=== PATIENT | male | born 1970 | race Caucasian/White ===

== ENCOUNTER 2017-05-14 17:19 | Outpatient (CLI) | payer OTHER ==
--- NOTE | 2017-05-15 11:09 | XRAY Report ---
THREE-VIEW RIGHT ANKLE: 05/14/2017 CLINICAL INDICATION: Pain. COMPARISON: 04/15/2012 FINDINGS: Frontal, lateral and oblique views of the right ankle demonstrate mild osteoarthritis. There is no evidence of acute fracture or dislocation. No effusion or soft tissue swelling is present. IMPRESSION: MILD OSTEOARTHRITIS. JAVED/ TD: 05/15/2017 12[facility]
--- NOTE | 2017-05-15 11:11 | XRAY Report ---
DATE OF SERVICE: 05/14/2017 Physician: Kg Chawla MD TWO-VIEW LEFT CALCANEUS: 05/14/2017 CLINICAL INDICATION: Pain. FINDINGS: AP, lateral views of the left calcaneus demonstrate no evidence of fracture. A small plantar calcaneal spur is present. No radiopaque foreign body is seen in the soft tissues. IMPRESSION: SMALL LEFT PLANTAR CALCANEAL SPUR. TD: 05/15/2017 12:09 [facility]
== END 2017-05-14 17:20 | disposition home or self-care (01) ==
LOC: DI 17:19
PROVIDERS: ATTEND Internal Medicine
DX: M19.071 Primary osteoarthritis, right ankle and foot (principal); M25.571 Pain in right ankle and joints of right foot; M77.32 Calcaneal spur, left foot; M79.672 Pain in left foot

== ENCOUNTER 2021-10-15 10:57 | Outpatient (CLI) | payer SELFPAY ==
--- NOTE | 2021-10-15 12:21 | XRAY Report ---
PROCEDURE: Lumbar Spine 2 View INDICATIONS: LOW BACK PAIN,ACUTE TECHNIQUE: 2 views of the lumbar spine were acquired. COMPARISON: None. FINDINGS: Bones: 5 exn-qsa-[id number] vertebrae are present. There is normal bony alignment. No vertebral body compression fractures. No suspicious bony lesions. Moderate to severe L5-S1 degenerative disc diseas e. Mild L3-L4 and L4-L5 degenerative disc disease. Soft tissues: Overlying bowel gas pattern is normal. No suspicious soft tissue calcifications. IMPRESSION: 1. Multilevel degenerative disc disease. 2. No fracture. No acute osseous lesion. If there is continued clinical concern for pathology, then M RI should be considered for further evaluation. Reviewed by: Kayleigh Cano MD, PhD on 10/15/2021 12:19 PM PDT Approved by: Kayleigh Cano MD, PhD on 10/15/2021 12:19 PM PDT Station ID: [id number]
== END 2021-10-15 10:58 | disposition home or self-care (01) ==
LOC: DI 10:57
PROVIDERS: ATTEND Family Medicine
DX: M51.36 Other intervertebral disc degeneration, lumbar region (principal); M51.37 Other intervertebral disc degeneration, lumbosacral region

== ENCOUNTER 2022-06-04 12:28 | Emergency (ER) | payer SELFPAY ==
[2022-06-04 13:13] LABS: BASOPHILS # (AUTO) 0.1 10^3/uL (0.0-0.1); BASOPHILS % (AUTO) 1.2 %; EOSINOPHILS # (AUTO) 0.1 10^3/uL (0.0-0.7); EOSINOPHILS % (AUTO) 1.4 %; HCT - HEMATOCRIT 43.7 % (42.0-52.0); HGB - HEMOGLOBIN 14.5 g/dL (14.0-18.0); LYMPHOCYTES % (AUTO) 28.9 %; MEAN CORPUSCULAR HGB CONC 33.2 g/dL (32.0-36.0); MEAN CORPUSCULAR VOLUME 96.5 fL (80.0-94.0); MEAN PLATELET VOLUME 10.1 fL (7.4-11.4); MONOCYTES # (AUTO) 0.5 10^3/uL (0.0-1.0); MONOCYTES % (AUTO) 7.2 %; NEUTROPHILS # (AUTO) 4.2 10^3/uL (1.5-6.6); PLT - PLATELET COUNT 258 10^3/uL (130-450); RED BLOOD COUNT 4.53 10^6/uL (4.70-6.10); RED CELL DISTRIBUTION WIDTH 12.9 % (12.0-15.0)
[2022-06-04 13:32] LABS: ALBUMIN 4.4 g/dL (3.2-5.5); ALBUMIN/GLOBULIN RATIO 1.3 (1.0-2.2); BILIRUBIN,TOTAL 0.7 mg/dL (0.2-1.0); CALCIUM 8.6 mg/dL (8.5-10.3); CREATININE 0.9 mg/dL (0.6-1.2); POTASSIUM 3.3 mmol/L (3.5-5.0); TOTAL PROTEIN 7.9 g/dL (6.7-8.2)
--- NOTE | 2022-06-04 13:50 | XRAY Report ---
PROCEDURE: Chest 1 View X-Ray INDICATIONS: Chest pain TECHNIQUE: One view of the chest was acquired. COMPARISON: None. FINDINGS: Surgical changes and devices: None. Lungs and pleura: Low lung volumes without consolidation or pleural effusion. Mediastinum: Mediastinal contours appear normal. Heart size is normal. Bones and chest wall: No suspicious bony lesions. Overlying soft tissues appear unremarkable. IMPRESSION: No acute radiographic abnormality. Reviewed by: Edward Barbosa MD on 06/04/2022 1:48 PM PST Approved by: Edward Barbosa MD on 06/04/2022 1:48 PM [facility] Station ID: [id number]
[2022-06-04] MEDS ORDERED: iohexoL-300 100 ML VIAL ONE (15:33)
[2022-06-04] MEDS ORDERED: iohexoL-300 100 ML VIAL IVP ONE (16:12)
--- NOTE | 2022-06-04 16:30 | CT Report ---
PROCEDURE: ANGIO NECK W INDICATIONS: Left-sided face, arm, and leg numbness. CONTRAST: 80mL Omni 300 TECHNIQUE: After the administration of intravenous contrast, 1.5 mm axial sections acquired from the aortic arch to the [place] of [place]. Coronal 3-D maximum intensity projection (MIP) and/or volume rendering ref ormats were then performed. For radiation dose reduction, the following was used: automated exposur e control, adjustment of mA and/or kV according to patient size. COMPARISON: None. FINDINGS: Standard three-vessel aortic arch anatomy. Origins of the arch branch vessels are widely patent. Bila teral common carotid arteries and carotid bifurcations are widely patent. The extracranial portions o f the internal carotid arteries are normal in caliber. Bilateral vertebral arteries widely patent. Mi ldly hypoplastic left vertebral artery with dominant right vertebral artery. IMPRESSION: No immediately significant stenosis of the carotid or vertebral artery circulation in the neck. Reviewed by: Fam Adamson MD on 06/04/2022 4:28 PM PST Approved by: Fam Adamson MD on 06/04/2022 4:28 PM PST Station ID: [id number]
--- NOTE | 2022-06-04 16:33 | CT Report ---
PROCEDURE: ANGIO HEAD W/WO INDICATIONS: L sided face, arm, leg numbness CONTRAST: 80mL Omni 300 TECHNIQUE: Precontrast 4.5 mm thick angled axial sections acquired from the foramen magnum to the vertex. Afte r the administration of intravenous contrast, 1 mm thick sections acquired through the [place] of [place] is. Postcontrast 4.5 mm thick sections then re-acquired from the foramen magnum to the vertex. 3-di mensional ppmitsr-nbsbzmetg-hoyyqvkwcp (MIP) and/or volume rendering reformats were acquired of the c entral intracranial vasculature. For radiation dose reduction, the following was used: automated ex posure control, adjustment of mA and/or kV according to patient size. COMPARISON: None FINDINGS: Noncontrast images of the brain demonstrate no acute intracranial hemorrhage, abnormal extra-axial fl uid collection, mass effect, or midline shift. There normal ventricular caliber and position. Basilar cisterns patent. Normal brain parenchymal attenuation. No gross orbital abnormality. Paranasal sinus es and mastoid air cells clear. Angiographic images demonstrate widely patent intracranial internal carotid arteries. Anterior and mi ddle cerebral artery branches appear widely patent. V4 segments and basilar artery are normal in [place]. Posterior cerebral arteries appear normal. IMPRESSION: No acute intracranial in the MLO No intracranial arterial flow-limiting stenosis or branch occlusion. Reviewed by: Fam Adamson MD on 06/04/2022 4:31 PM PST Approved by: Fam Adamson MD on 06/04/2022 4:31 PM PST Station ID: [id number]
[2022-06-04] MEDS ORDERED: MAG HYDROX/AL HYDROX/SIMETH 30 ML UDC PO STA (18:44)
[2022-06-04] MEDS ORDERED: SUCRALFATE 1 GM/10 ML UDC PO STA (18:44)
--- NOTE | 2022-06-04 18:58 | ED Physician Documentation ---
History of Present Illness - Stated complaint Stated Complaint: L SIDE FACE/BODY NUMBNESS, CHEST PX - Chief complaint Chief Complaint: General - History obtained from History obtained from: Patient, Family - History of Present Illness Timing: Last night Pain level max: 0 Pain level now: 0 - Additonal information Additional information: Patient is a 52-year-old male, presents to the emergency department with several complaints. He states that yesterday he noticed a slight numbness to his left calf. This has come and gone today. He also noticed that he had numbness on the volar aspect of the left forearm. This went down to the wrist. No numbness in the hand. No numbness proximal to the elbow. No difficulty using his hands. He states the left cheek was also numb. No vision changes. No taste changes. No facial droop. No difficulty speaking. He states he had slight chest pressure as well. This was nonradiating. Did not seem to change with walking, deep breath. No cardiac history. He states that he has a history of binge drinking alcohol. He states he drinks a 12 pack of beer in a sitting and does this approximately 3-4 times per week. He states that he was recently started on metoprolol to help with the alcohol use and to help him quit drinking. No headache. No trauma. Review of Systems Constitutional: denies: Fever, Chills Skin: denies: Rash Musculoskeletal: denies: Neck pain, Back pain Neurologic: denies: Headache PD PAST MEDICAL HISTORY - Past Medical History Past Medical History: No - Past Surgical History Past Surgical History: No - Allergies Allergies/Adverse Reactions: Allergies Allergy/AdvReac Type Severity Reaction Status Date / Time No Known Drug Allergies Allergy Verified 06/04/22 12:57 - Living Situation Living Situation: reports: With family Living Arrangement: reports: At home - Social History Does the pt smoke?: No Does the pt drink ETOH?: Yes ETOH Use: Beer Does the pt have substance abuse?: No - Family History Family history: reports: Non contributory PD ED PE NORMAL - Vitals Vital signs reviewed: Yes - General General: Alert and oriented X 3, No acute distress, Well developed/nourished - HEENT HEENT: Atraumatic, PERRL, EOMI, Ears normal, Moist mucous membranes, Pharynx benign - Neck Neck: Supple, no meningeal sign, No JVD, No bruit - Cardiac Cardiac: RRR, Strong equal pulses - Respiratory Respiratory: No respiratory distress, Clear bilaterally - Abdomen Abdomen: Soft, Non tender, Non distended - Derm Derm: Warm and dry, No rash - Extremities Extremities: No edema, No calf tenderness / cord - Neuro Neuro: Alert and oriented X 3, qa consultant 2-12 intact, No motor deficit, No sensory deficit, Normal speech Eye Opening: Spontaneous Motor: Obeys Commands Verbal: Oriented GCS Score: 15 - Psych Psych: Normal mood, Normal affect Results - Vitals Vitals: Vital Signs - 24 hr 06/04/22 06/04/22 06/04/22 12:52 17:38 19:00 Temperature 36.4 C L Heart Rate 80 64 61 Respiratory 16 13 16 Rate Blood Pressure 168/98 H 145/103 H 139/95 H O2 Saturation 99 95 95 Oxygen O2 Source Room air - EKG (time done) 1300 Rate: Rate (enter#) (77) Rhythm: NSR [place]: Normal Intervals: Normal MD QRS: Normal Ischemia: T wave inversion (III) - Labs Labs: Laboratory Tests 06/04/22 06/04/22 06/04/22 13:08 13:08 13:08 WBC 7.0 RBC 4.53 L Hgb 14.5 Hct 43.7 MCV 96.5 H MCH 32.0 H MCHC 33.2 RDW 12.9 Plt Count 258 MPV 10.1 Neut # (Auto) 4.2 Lymph # (Auto) 2.0 Williams # (Auto) 0.5 Eos # (Auto) 0.1 Baso # (Auto) 0.1 Absolute Nucleated RBC 0.00 Nucleated RBC % 0.0 Sodium 136 Potassium 3.3 L Chloride 96 L Carbon Dioxide 28 Anion Gap 12.0 BUN 13 Creatinine 0.9 Estimated GFR (MDRD) 89 Glucose 94 Calcium 8.6 Phosphorus Magnesium Total Bilirubin 0.7 AST 28 ALT 35 Alkaline Phosphatase 57 Troponin I High Sens 2.4 Total Protein 7.9 Albumin 4.4 Globulin 3.5 Albumin/Globulin Ratio 1.3 Lipase 31 06/04/22 13:08 WBC RBC Hgb Hct MCV MCH MCHC RDW Plt Count MPV Neut # (Auto) Lymph # (Auto) Williams # (Auto) Eos # (Auto) Baso # (Auto) Absolute Nucleated RBC Nucleated RBC % Sodium Potassium Chloride Carbon Dioxide Anion Gap BUN Creatinine Estimated GFR (MDRD) Glucose Calcium Phosphorus 3.5 Magnesium 2.2 Total Bilirubin AST ALT Alkaline Phosphatase Troponin I High Sens Total Protein Albumin Globulin Albumin/Globulin Ratio Lipase - Rads (name of study) cxr Radiology: Final report received, See rad report CT angio neck Radiology: Final report received, See rad report CT angio head Radiology: Final report received, See rad report PD Medical Decision Making - ED course Complexity details: reviewed results, re-evaluated patient, considered differential (No ST elevation [place], no aortic dissection, no PE, no tension pneumothorax, no aortic aneurysm), d/w patient, d/w family ED course: 52-year-old male presents to the emergency department with numbness to the left forearm, volar aspect over about a 4 inch area, also numbness to the left calf over about a 3 inch area. He had slight numbness to the side of the face as well. Unclear etiology. No acute findings on CT angiogram of the head and neck. The aortic arch does not show any evidence of dissection. The patient did have chest pressure, high-sensitivity troponin is negative. EKG does not show any acute abnormalities. Patient does feel better after GI cocktail. Possible GERD versus gastritis? Abdomen is soft, nontender nondistended. No evidence of cholecystitis, peritonitis. Unclear etiology of the paresthesias. Recommend MRI with his doctor. MRI not available here today. Also recommend a cardiac stress test with his doctor. Patient will also start on a baby aspirin daily. He will return if he worsens. Patient and family counseled regarding signs and symptoms for which I believe and urgent re-evaluation would be necessary. Patient with good understanding of and agreement to plan and is comfortable going home at this time This document was made in part using voice recognition software. While efforts are made to proofread this document, sound alike and grammatical errors may occur. Departure - Departure Disposition: Home, Self Care Clinical Impression: Paresthesia Chest pain Qualifiers: Chest pain type: unspecified Qualified Code(s): R07.9 - Chest pain, unspecified Condition: Good Instructions: ED Chest Pain Atypical Unkn Cause, ED Paraesthesias Follow-Up: Gerri Pink PA [Primary Care Provider] - Within 3 Days Comments: Please continue your metoprolol at home. The CT angiogram of your head and neck did not show any acute abnormalities. Your chest x-ray does not show any acute abnormalities. Your laboratory testing is normal other than a mildly low potassium and sodium levels. These are not dangerous. Your heart tests are negative. It is recommended that you follow-up with your doctor for a cardiac stress test and further care. You should start on a baby aspirin daily. Please return if you worsen. Discharge Date/Time: 06/04/22 19:54 NIHSS - Time Time: 18:10 - Level of Consciousness Level of consciousness: (0) Alert, Keenly responsive LOC Questions: (0) Answers both Q's correct LOC Commands: (0) Performs both correctly - Gaze Best Gaze: (0) Normal - Visual Visual: (0) No loss - Facial Palsy Facial Palsy: (0) Normal, symmetrical movement - Motor Arms (both separate) Motor Arm (right): (0) No drift Motor Arm (left): (0) No drift - Motor Legs (both separate) Motor Leg (right): (0) No drift Motor Leg (left): (0) No drift - Limb Ataxia Limb Ataxia: (0) Absent - Sensory Sensory: (0) Normal - Best Language Best Language: (0) No aphasia - Dysarthria Dysarthria: (0) Normal - Extinction and Inattention (formally neg Extinction and inattention: (0) No abnormality - Total Score/Results Total Score/Result: 0
[2022-06-04 19:06] LABS: MAGNESIUM 2.2 mg/dL (1.7-2.8); PHOSPHORUS 3.5 mg/dL (2.5-4.6)
[2022-06-04 19:48] VITALS: BP 139/95
== END 2022-06-04 19:54 | disposition home or self-care (01) ==
LOC: ED 12:28 → SUPCPDRO 12:28 → ED 19:54
DX: R20.2 Paresthesia of skin (principal); R07.89 Other chest pain
CPT/HCPCS: 36415; 70496; 70498; 71045; 80053; 83690; 83735; 84100; 84484; 85025; 93005; 99283; 99284; A9270; Q9967

== ENCOUNTER 2023-06-01 07:40 | Outpatient (CLI) | payer BC ==
[2023-06-01 08:08] LABS: BASOPHILS % (AUTO) 0.8 %; EOSINOPHILS # (AUTO) 0.1 10^3/uL (0.0-0.7); EOSINOPHILS % (AUTO) 2.3 %; HGB - HEMOGLOBIN 13.7 g/dL (14.0-18.0); LYMPHOCYTES # (AUTO) 1.8 10^3/uL (1.5-3.5); MEAN CORPUSCULAR HGB CONC 33.4 g/dL (32.0-36.0); MEAN CORPUSCULAR VOLUME 98.8 fL (80.0-94.0); MEAN PLATELET VOLUME 9.6 fL (7.4-11.4); MONOCYTES # (AUTO) 0.5 10^3/uL (0.0-1.0); MONOCYTES % (AUTO) 9.9 %; NEUTROPHILS # (AUTO) 2.8 10^3/uL (1.5-6.6); NEUTROPHILS % (AUTO) 52.6 %; PLT - PLATELET COUNT 284 10^3/uL (130-450); RED BLOOD COUNT 4.15 10^6/uL (4.70-6.10); WHITE BLOOD COUNT 5.3 x10^3/uL (4.8-10.8)
[2023-06-01 08:26] LABS: ALBUMIN/GLOBULIN RATIO 1.4 (1.0-2.2); ALKALINE PHOSPHATASE 50 IU/L (42-121); ALT ALANINE AMINOTRANSFERASE 42 IU/L (10-60); AST ASPARTATE AMINOTRANSFERASE 25 IU/L (10-42); BILIRUBIN,TOTAL 0.4 mg/dL (0.2-1.0); BUN - BLOOD UREA NITROGEN 16 mg/dL (6-20); CALCIUM 8.4 mg/dL (8.5-10.3); CARBON DIOXIDE - CO2 29 mmol/L (21-32); CHLORIDE 103 mmol/L (101-111); CHOL/HDL RATIO 4.2 (<5.0); CHOLESTEROL 200 mg/dL; GFR - MDRD 79 (>89); GLUCOSE 104 mg/dL (74-104); HDL CHOLESTEROL 48 mg/dL; LDL CHOLESTEROL,CALCULATED 135 mg/dL; LDL/HDL RATIO 2.8 (<3.6); POTASSIUM 3.9 mmol/L (3.5-4.5); SODIUM 137 mmol/L (135-145); TOTAL PROTEIN 6.8 g/dL (6.4-8.9); TRIGLYCERIDES 86 mg/dL (48-352); VLDL CHOLESTEROL 17 mg/dL
== END 2023-06-01 07:41 | disposition home or self-care (01) ==
LOC: LAB 07:40
PROVIDERS: ATTEND Physician Assistant
DX: I10 Essential (primary) hypertension (principal)
CPT/HCPCS: 36415; 80053; 80061; 83721; 84439; 84443; 85025

== ENCOUNTER 2023-06-14 10:14 | Outpatient (CLI) | payer BC ==
[2023-06-14 11:12] LABS: THYROID STIMULATING HORMONE 0.03 uIU/mL (0.34-5.60)
== END 2023-06-14 10:15 | disposition home or self-care (01) ==
LOC: LAB 10:14
PROVIDERS: ATTEND Physician Assistant
DX: R94.6 Abnormal results of thyroid function studies (principal)
CPT/HCPCS: 36415; 84439; 84443; 84481

== ENCOUNTER 2023-07-18 09:45 | Outpatient (CLI) | payer BC ==
[2023-07-18] MEDS ORDERED: LIDOCAINE-MPF 1% 5 ML VIAL ONE (09:58)
[2023-07-18] MEDS: LIDOCAINE-MPF 1% 5 ML VIAL TD ONE (11:01)
--- NOTE | 2023-07-18 11:59 | Ultrasound Report ---
PROCEDURE: FNA Bx w/US Gdn 1st Les INDICATIONS: THYROID NODULE TECHNIQUE: The indications, alternatives, benefits, risks, and complications of the procedure were explained to the patient. Written informed consent was obtained and placed in the chart. The area of interest wa s examined sonographically and a site was chosen for ultrasound guided percutaneous sampling. The sk in was prepared and draped in the usual fashion, and anesthetized with 1% lidocaine infiltrated from the skin down to the lesion. Multiple passes were then performed, with contents emptied into an appr [facility] pathology specimen container. A bandage was applied to the area of access at completion of t he study. COMPARISON: 6 06/27/2023 FINDINGS: Location(s) of lesion(s) sampled: Left thyroid mid nodule [place]: 25 gauge hypodermic needles. Number of passes: 4 Medications: 1% lidocaine for local anaesthesia. Complications: None. IMPRESSION: Successful ultrasound-guided left thyroid mid nodule fine needle aspiration, with cytology results pe nding. Reviewed by: Edward Barbosa MD on 07/18/2023 11:57 AM PST Approved by: Edward Barbosa MD on 07/18/2023 11:57 AM PST Station ID: [id number]
== END 2023-07-18 09:46 | disposition home or self-care (01) ==
LOC: DI 09:45
PROVIDERS: ATTEND Physician Assistant
DX: E04.1 Nontoxic single thyroid nodule (principal)
CPT/HCPCS: 10005

== ENCOUNTER 2023-07-31 06:22 | Day surgery (SDC) | payer BC ==
[2023-07-31] MEDS: LACTATED RINGERS 1,000 ML IV ONE (06:25)
--- NOTE | 2023-07-31 06:55 | ANESTHESIA ---
Pre-Anesthesia VS, & Labs - Diagnosis positive cologuard - Procedure colonoscopy Vital Signs: Temp Pulse Resp BP Pulse Ox O2 Flow Rate 36.0 C L 74 16 120/87 H 96 07/31/23 06:25 07/31/23 06:25 07/31/23 06:25 07/31/23 06:25 07/31/23 06:25 Height: 5 ft 4 in Weight (kg): 90 kg Body Mass Index: 34.0 BMI Classification: Obese - NPO Last Fluid Intake: am prep - Lab Results Lab results reviewed: Yes Home Medications and Allergies Home Medications: Ambulatory Orders Lisinopril [Zestril] 10 mg PO DAILY 07/30/23 Lisinopril [Zestril] 10 mg PO DAILY 07/30/23 Allergies/Adverse Reactions: Allergies Allergy/AdvReac Type Severity Reaction Status Date / Time No Known Drug Allergies Allergy Verified 06/04/22 12:57 Anes History & Medical History - Anesthetic History Anesthesia Complications: reports: No previous complications Family history of Anesthesia Complications: Denies Family history of Malignant Hyperthermia: Denies - Medical History Cardiovascular: reports: Hypertension Endocrine/Autoimmune: reports: Other Psychosocial: reports: Alcohol - Surgical History Orthopedic: reports: Other Exam General: Alert, Oriented x3 Dental: WNL Mouth Opening: Greater than 4 Fingerbreadths Neck Mobility: Normal Mallampati classification: II Thyromental Distance: greater than 6 cm Respiratory: Lungs clear, Normal breath sounds, No respiratory distress Cardiovascular: Regular rate Neurological: Normal speech Mental/Cognitive Status: Alert/Oriented X3, Normal for patient Cognitive Status: Within normal limits Plan Anesthesia Type: Total IV Consent for Procedure(s) Verified and Reviewed: Yes Code Status: Attempt Resuscitation ASA classification: 2-Mild systemic disease Is this case an emergency?: No
[2023-07-31] MEDS ORDERED: PROPOFOL 500 MG/50 ML 500 MG/50 ML VIAL ONE (07:04)
[2023-07-31] MEDS ORDERED: MIDAZOLAM 2 MG/2 ML VIAL ONE (07:07)
--- NOTE | 2023-07-31 07:27 | HISTORY & PHYSICAL EXAMINATION ---
Chief Complaint - Chief Complaint Chief Complaint: here for colonoscopy History of Present Illness - History Obtained From Records Reviewed: yes History obtained from: pt Exam Limitations: none - History of Present Illness HPI Comment/Other: positive cologuard and very mild anemia. no significant gi symptoms or family hx colon ca History - Past Medical History Cardiovascular: reports: Hypertension Endocrine/Autoimmune: reports: Other Psych: reports: None MRSA Hx?: No - Past Surgical History Ortho: reports: Other - Family & Social History Living Situation: With family Meds/Allgy - Home Medications Home Medications: Ambulatory Orders Medication Instructions Recorded Confirmed Lisinopril [Zestril] 10 mg PO DAILY 07/30/23 07/30/23 - Allergies Allergies/Adverse Reactions: Allergies Allergy/AdvReac Type Severity Reaction Status Date / Time No Known Drug Allergies Allergy Verified 06/04/22 12:57 Review of Systems - Other Findings Other Findings: 10 pt ros as above otherwise unremarkable Exam - Vital Signs Vital Signs: Vital Signs x48h Temp Pulse Resp BP Pulse Ox 07/31/23 06:25 36.0 C L 74 16 120/87 H 96 - Physical Exam General Appearance: positive: No acute distress, Alert Eyes Bilateral: positive: PERRL, EOMI ENT: positive: No signs of dehydration Neck: positive: No JVD, Trachea midline Respiratory: positive: No respiratory distress Cardiovascular: positive: Regular rate & rhythm Abdomen: positive: Non-tender, No distention Neurologic/Psychiatric: positive: Oriented x3 Conclusion/Plan - Problem List (1) Abnormal stool test Conclusion/Plan: positive cologuard. plan colonoscopy. parq held and consent obtained - Lab Results Lab results reviewed: Yes
[2023-07-31] MEDS ORDERED: PROPOFOL 200 MG/20 ML VIAL IVP ONE (07:39)
[2023-07-31] MEDS: LACTATED RINGERS 500 ML IV ONE (08:02)
[2023-07-31 08:41] VITALS: BP 120/82; O2SAT 97
--- NOTE | 2023-07-31 10:52 | ANESTHESIA POST OP EVALUATION ---
Anesthesia Post Eval - Post Anesthesia Eval Vitals: Last Vital Signs Temp 36.1 C L 07/31/23 08:25 Pulse 72 07/31/23 08:29 Resp 16 07/31/23 08:29 BP 120/82 H 07/31/23 08:29 Pulse Ox 97 07/31/23 08:29 O2 Flow Rate CV Function Including HR & BP: Stable Pain Control: Satisfactory Nausea & Vomiting: Negative Mental Status: Baseline Respiratory Status: Airway Patent Hydration Status: Satisfactory Anesthesia Complications: None
== END 2023-07-31 06:23 | disposition home or self-care (01) ==
LOC: SDS 06:22
PROVIDERS: ATTEND Surgery
PROC: 0DBL8ZX Excision of Transverse Colon, Via Natural or Artificial Opening Endoscopic, Diagnostic (ICD-10-PCS; 2023-07-31)
PROC: 0DBF8ZX Excision of Right Large Intestine, Via Natural or Artificial Opening Endoscopic, Diagnostic (ICD-10-PCS; 2023-07-31)
PROC: 0DBM8ZX Excision of Descending Colon, Via Natural or Artificial Opening Endoscopic, Diagnostic (ICD-10-PCS; principal; 2023-07-31 07:30)
DX: K52.9 Noninfective gastroenteritis and colitis, unspecified (principal); R19.5 Other fecal abnormalities; D64.9 Anemia, unspecified; E66.9 Obesity, unspecified; Z68.34 Body mass index [BMI] 34.0-34.9, adult
CPT/HCPCS: 45380; J7120

== ENCOUNTER 2025-01-30 10:25 | Observation (INO) ==
--- OUTSIDE RECORDS SUMMARY | 2025-01-30 11:11 | EXTERNAL MEDICAL SUMMARY RPT | Continuity of Care Document ---
Author Organization [facility] Address [address] [place] [id number] Phone Problems date description facility 2024-11-05 13:08 Elevated prostate specific anti gen [PSA] [facility] 2024-11-05 13:10 Elevated prostate specific anti gen [PSA] [facility] 2024-11-15 06:55 Elevated prostate specific anti gen [PSA] [facility] 2024-11-16 00:02 Elevated prostate specific anti gen [PSA] [facility] 2024-12-21 12:45 Elevated prostate specific anti gen [PSA] [facility] 2024-12-30 06:59 Other specified disorders of pr ostate [facility] 2024-12-30 06:59 Elevated prostate specific anti gen [PSA] [facility] Social History date description facility
--- NOTE | 2025-01-30 11:29 | XRAY Report ---
PROCEDURE: XR Chest 1V INDICATIONS: Chest Pain TECHNIQUE: One view of the chest was acquired. COMPARISON: None. FINDINGS: Surgical changes and devices: None. Lungs and pleura: No pleural effusions or pneumothorax. No consolidation. Mediastinum: The aorta is prominent and tortuous. The cardiac contours are within normal limits. Bones and chest wall: No suspicious bony lesions. Overlying soft tissues appear unremarkable. IMPRESSION: No acute cardiopulmonary process. Reviewed by: Sylvester Martel MD on 01/30/2025 10:27 AM [facility] Approved by: Sylvester Martel MD on 01/30/2025 10:27 AM [facility] Station ID: [id number]
[2025-01-30 11:39] LABS: HCT - HEMATOCRIT 41.1 % (42.0-52.0); HGB - HEMOGLOBIN 13.4 g/dL (14.0-18.0); MEAN PLATELET VOLUME 9.9 fL (7.4-11.4); NRBC ABSOLUTE COUNT (AUTO) 0.00 x10^3/uL; NUCLEATED RED BLOOD CELLS AUTO 0.0 /100WBC; PLT - PLATELET COUNT 329 10^3/uL (130-450); RED CELL DISTRIBUTION WIDTH 12.8 % (12.0-15.0)
[2025-01-30 11:54] LABS: ALT ALANINE AMINOTRANSFERASE 35 IU/L (10-60); AST ASPARTATE AMINOTRANSFERASE 27 IU/L (10-42); BUN - BLOOD UREA NITROGEN 10 mg/dL (6-20); CARBON DIOXIDE - CO2 31 mmol/L (21-32); CREATININE 1.0 mg/dL (0.6-1.3); GFR - MDRD 78 (>89)
[2025-01-30 12:00] LABS: TROPONIN I HIGH SENSITIVITY < 2.3 ng/L (2.3-19.7)
[2025-01-30] MEDS: MECLIZINE 12.5 MG TABLET PO STA ×2 (12:17→13:31)
[2025-01-30] MEDS: SODIUM CHLORIDE 0.9% 1,000 ML IV STA ×2 (12:18→15:40)
--- NOTE | 2025-01-30 12:27 | ED Physician Documentation ---
History of Present Illness Stated complaint Stated Complaint: HIGH BP, DIZZY, PALE Chief complaint Chief Complaint: Neuro History obtained from History obtained from: Patient History of Present Illness Timing: Prior to arrival Additonal information Additional information: Patient is a 54-year-old male presenting to the emergency department with sudden onset of dizziness after sitting down after doing the dishes around 9 45-10 o'clock this morning. His dizziness symptoms lasted for about half an hour and on his arrival to the ED he had multiple episodes of vomiting. He is still feeling slightly nauseous and dizzy here in the ED but is feeling significantly better. He took his blood pressure at home and it was elevated he came to the ED due to the symptoms. He notes he has a history of hypertension and he took his lisinopril dose last night without any difficulty. He has a slight headache with his symptoms at a 5 out of 10 some numbness to the life side of his jaw and left pinky but does have improved. He was able to ambulate here into the emergency department without significant difficulty and vitals remained stable on arrival. He has no history of vertigo symptoms he has no history of stroke no history of coronary artery disease. He has a history of alcohol abuse his last use was yesterday evening and he drink more than usual is he usually is up around 6-7 beers at night. He denies feeling hung over when he woke up this morning and was feeling fine until he sat down after doing the dishes. Meds/Allgy Home Medications Ambulatory Orders Medication Instructions Recorded Confirmed lisinopril 10 mg tablet (Zestril) 10 mg PO DAILY PM 01/31/25 Allergies Allergies Allergy/AdvReac Type Severity Reaction Status Date / Time No Known Drug Allergies Allergy Verified 01/30/25 10:43 [facility] Active Problems All Active Problems (Updated 01/31/25 @ 13:14 by Hailey Bethea PA-C) Vertigo (Acute) Dizziness (Acute) Ulcerative colitis (Acute) Intractable nausea and vomiting (Acute) Prostate cancer (Acute) Elevated PSA (Acute) Alcohol abuse (Acute) Essential (primary) hypertension (Acute) Decreased libido (Acute) Hyperthyroidism, subclinical (Acute) Medical History Medical History (Updated 01/31/25 @ 13:14 by Hailey Bethea PA-C) Furuncle Trigger finger of right thumb Thyroid nodule Chronic ulcerative colitis Surgical History Surgical History (Updated 01/30/25 @ 12:02 by Garret Whitman RN) Hx of prostate biopsy Family History Family History Father Arthritis Mother Diabetes Social History Social History (Updated 01/30/25 @ 12:02 by Garret Whitman RN) Smoking Status: Former smoker If you are a former smoker, when did you quit? (Date/Year): 2019 Number of Years Smoked: 20 Second hand tobacco smoke exposure: No Do you dip or chew tobacco?: Yes Do you vape?: No Living arrangement: At home Marital Status: Single Living Condition: With family Support Person: Yes Physical Activity: None Level: Independent Do you feel safe in your home environment?: Yes History of physical, verbal, emotional, or financial abuse?: No ETOH Use: Beer Frequency: Daily Number of drinks/day: 6 Substance Use: denies use POLST Patient has POLST: No Exam Exam Vital Signs: Vital Signs x48h Temp Pulse Resp BP Pulse Ox 01/30/25 16:52 103 H 19 158/96 H 97 01/30/25 15:39 90 18 161/92 H 94 01/30/25 14:54 85 12 149/92 H 97 01/30/25 14:19 90 16 152/96 H 94 01/30/25 13:57 84 15 154/96 H 92 01/30/25 13:28 102 H 18 183/110 H 97 01/30/25 11:53 82 12 138/82 H 97 01/30/25 10:43 36.0 C L 94 18 154/116 H 98 Constitutional normal general appearance [facility] normocephalic, head/scalp atraumatic and hearing grossly normal bilaterally Patient reports increased sensation on left forehead, but no other sensation abnormalities throught face, CN III-XII intact. TM's are clear bilaterally Respiratory breath sounds equal bilaterally, normal respiratory effort and clear to auscultation bilaterally Cardiovascular normal heart rate noted, regular rhythm noted, no gallop and no rub Gastrointestinal abdomen normal to inspection Neurology Patient reports increased sensation on left forehead, but no other sensation abnormalities throught face, CN III-XII intact. Skin skin color normal, no rash and no lesions Results Vitals Vitals: Vital Signs - 24 hr 01/30/25 13:28 01/30/25 13:52 01/30/25 13:57 Pulse Rate 102 H 84 Respiratory Rate 18 15 Blood Pressure 183/110 H 154/96 H O2 Saturation 97 92 O2 Source Room air Room air Pain Intensity 7 7 7 01/30/25 14:19 01/30/25 14:54 01/30/25 14:55 Pulse Rate 90 85 Respiratory Rate 16 12 Blood Pressure 152/96 H 149/92 H O2 Saturation 94 97 O2 Source Room air Room air Pain Intensity 7 8 8 01/30/25 15:39 01/30/25 15:42 01/30/25 16:45 Pulse Rate 90 Respiratory Rate 18 Blood Pressure 161/92 H O2 Saturation 94 O2 Source Room air Pain Intensity 9 9 6 01/30/25 16:52 01/30/25 17:44 Pulse Rate 103 H Respiratory Rate 19 Blood Pressure 158/96 H O2 Saturation 97 O2 Source Room air Pain Intensity 6 7 Oxygen O2 Source Room air Labs Labs: Laboratory Tests 01/30/25 01/30/25 01/30/25 11:36 13:44 15:45 WBC 10.8 RBC 4.11 L Hgb 13.4 L Hct 41.1 L MCV 100.0 H MCH 32.6 H MCHC 32.6 RDW 12.8 Plt Count 329 MPV 9.9 Neut # (Auto) 8.5 H Lymph # (Auto) 1.2 L [place] # (Auto) 0.7 Eos # (Auto) 0.3 Baso # (Auto) 0.1 Absolute Nucleated RBC 0.00 Nucleated RBC % 0.0 Sodium 138 Potassium 4.3 Chloride 101 Carbon Dioxide 31 Anion Gap 6.0 BUN 10 Creatinine 1.0 Estimated GFR (MDRD) 78 L Glucose 98 Calcium 8.5 Total Bilirubin 0.3 AST 27 ALT 35 Alkaline Phosphatase 53 Troponin I High Sens < 2.3 L < 2.3 L Total Protein 7.7 Albumin 4.3 Globulin 3.4 Albumin/Globulin Ratio 1.3 Lipase 71 Nasal Adenovirus (PCR) NOT DETECTED Nasal B. parapertussis DNA (PCR) NOT DETECTED Nasal Coronavir 229E PCR NOT DETECTED Nasal Coronavir HKU1 PCR NOT DETECTED Nasal Coronavir NL63 PCR NOT DETECTED Nasal Coronavir OC43 PCR NOT DETECTED Nasal Enterovir/Rhinovir PCR NOT DETECTED Nasal Influenza B PCR NOT DETECTED Nasal Influenza A PCR NOT DETECTED Nasal Parainfluen 1 PCR NOT DETECTED Nasal Parainfluen 2 PCR NOT DETECTED Nasal Parainfluen 3 PCR NOT DETECTED Nasal Parainfluen 4 PCR NOT DETECTED Nasal RSV (PCR) NOT DETECTED Nasal B.pertussis DNA PCR NOT DETECTED Nasal C.pneumoniae (PCR) NOT DETECTED Marcelo Human Metapneumo PCR NOT DETECTED Nasal M.pneumoniae (PCR) NOT DETECTED Nasal SARS-CoV-2 (PCR) NOT DETECTED Ethyl Alcohol < 10.0 PD Medical Decision Making ED course Complexity details: reviewed old records and reviewed results ED course: Patient is a 54-year-old male presenting to the emergency department with nausea vomiting dizziness symptoms that happened between 940 5 to 10 AM this morning. Symptoms have been prior persistent but improved after multiple episodes of vomiting here in the ED. Patient was able to ambulate here in the ED has some numbness that he reported to the left side of his jaw and left pinky but this seems to have improved on arrival to the ED physical exam shows no focal deficit he did report some left-sided increased sensation to the left side of his forehead but no other sensation abnormality throughout upper or lower extremities. He is vitals here show blood pressure normotensive nontachycardic afebrile here in the ED he has a negative troponin CMP is unremarkable otherwise lipase well within normal limits. Chest x-ray here shows no acute cardiopulmonary abnormality troponin well within normal limits and no ST changes on EKG findings here the ED. Patient Had recurrent episode of nausea vomiting diaphoresis here in the ED that was triggered by severe headache and dizziness symptoms at that time patient was sent for CT head and CT angio head and neck at that time. He was started on more IV fluids and given morphine for his head pain and droperidol with Benadryl. CT head showed no acute findings CT angio head and neck showedNo significant intracranial arterial abnormalities are seen. l soft plaque can be seen at the origin of the right vertebral artery, with 70% narrowing. This is new compared to 2022.No significant carotid abnormality is seen. 2.5 cm left thyroid nodule is seen. When clinically appropriate, please consider a follow-up thyroid ultrasound for further evaluation. Patient updated on reassuring findings he continues to have symptoms of nausea vomiting he tolerated eating but every time he sits up he has persistent vertigo room spinning and waviness in his vision he still appears pale and diaphoretic on exam despite 2 L of fluids he is mildly tachycardic here but remains normotensive. I discussed with patient he would like admission given his symp toms have not resolved with 3 doses of antiemetics and droperidol Zofran and meclizine with no significant relief. I discussed with Vernon and she agrees to see patient here in the ED Discharge Plan Discharge Patient Disposition: [facility] DC/Xfer Condition: Good Clinical Impression: Intractable nausea and vomiting, Dizziness, Vertigo Interventions: ED Admission Assessment Last Done: 01/30/25 18:32 Vitals documented within 30 minutes of discharge?: Yes
[2025-01-30] MEDS: MORPHINE 2 MG/ML CARPUJECT IVP STA (13:52)
[2025-01-30] MEDS: ONDANSETRON 4 MG/2 ML VIAL IVP STA ×2 (13:52→18:00)
--- NOTE | 2025-01-30 14:33 | CT Report ---
PROCEDURE: CT Head WO INDICATIONS: dizziness, nausea, TECHNIQUE: CT of the head was performed, without intravenous contrast. Reformats: Coronal and sagittal. For radiation dose reduction, the following was used: automated exposure control, adjustment of mA and/or kV according to patient size. COMPARISON: 06/04/2022. Correlation is made with the accompanying imaging. FINDINGS: Image quality: Diagnostic. CSF spaces: Basal cisterns are patent. No extra-axial fluid collections. Ventricles are normal in size and shape. Brain: No midline shift. No intracranial mass effect or hemorrhage. Walker- white matter interface is normal. Skull and face: Calvarium and visualized facial bones are intact, without suspicious lesions. Sinuses: Mild scattered areas of mucosal thickening can be seen within the paranasal sinuses. No significant abnormal fluid can be seen within the mastoid air cells. IMPRESSION: No imaging explanation is found for the patient's presenting symptoms. To the limits of this noncontrast study, no findings of masses or mass effect can be seen. Additional findings: Scattered paranasal sinus disease Reviewed by: Sylvester Martel MD on 01/30/2025 1:31 PM [facility] Approved by: Sylvester Martel MD on 01/30/2025 1:31 PM [facility] Station ID: [id number]
--- NOTE | 2025-01-30 14:37 | CT Report ---
PROCEDURE: CT Angio Head/Neck INDICATIONS: dizziness, numbness CONTRAST: Omni 100 80mL TECHNIQUE: After the administration of intravenous contrast, images werenacquired from the aortic arch through the [place]. 3-dimensional rpnbwen-pmjofstno-bmfrdateiz (MIP) and volume rendering reformats were acquired of the central intracranial vasculature and neck separately. COMPARISON: 06/04/2022. Correlation is made with the accompanying imaging. FINDINGS: Image quality: Limited by bolus timing, with venous contamination. Cerebral CT Angiogram: Internal carotid arteries: No acute findings. Intracranial ICA are patent with no significant stenosis. No occlusion. No aneurysm. Anterior cerebral arteries: Unremarkable. No significant stenosis. No occlusion. No aneurysm. Middle cerebral arteries: Unremarkable. No significant stenosis. No occlusion. No aneurysm. Posterior cerebral arteries: Incidental note is made of a prominent right posterior communicating artery, with a diminutive right P1 segment. This is attributed to a type origin of the right posterior cerebral artery, which is considered to be a developmental variant of typically no clinical con sequence. The flow within the posterior cerebral arteries is normal and symmetric. No stenoses, occlusions, or aneurysms. Basilar artery: Unremarkable. No significant stenosis. No occlusion. No aneurysm. Vertebral arteries: Unremarkable as visualized. Dural venous sinuses: Unremarkable given phase of enhancement. Other: Arterial phase appearance of the brain parenchyma is unremarkable. Neck CT Angiogram: Internal carotid arteries: Unremarkable. No significant stenosis. No dissection or occlusion. Common carotid arteries: Unremarkable. No significant stenosis. No dissection or occlusion. External carotid arteries: Unremarkable. No occlusion. Vertebral arteries: There is focal soft plaque seen involving the origin of the right vertebral artery, with 70% narrowing. The origin of the left vertebral artery is unremarkable. The more superior extracranial portions of both vertebral arteries also demonstrate normal courses and calibers. The right vertebral artery is dominant to the left. Aortic Arch and Mediastinum: Partially visualized aortic arch unremarkable without evidence of aneurysm. Origins of the great vessels unremarkable. Other: There is a 2.5 cm left thyroid nodule seen. There is focal moderate lower cervical spine degenerative change IMPRESSION: No significant intracranial arterial abnormalities are seen. Focal soft plaque can be seen at the origin of the right vertebral artery, with 70% narrowing. This is new compared to 2022. No significant carotid abnormality is seen. 2.5 cm left thyroid nodule is seen. When clinically appropriate, please consider a follow-up thyroid ultrasound for further evaluation. Additional findings: [place] developmental anomalies Focal moderate lower cervical spine degenerative change The estimate of stenosis included in the report of the imaging study was calculated using the NASCET method Reviewed by: Sylvester Martel MD on 01/30/2025 1:35 PM [facility] Approved by: Sylvester Martel MD on 01/30/2025 1:35 PM [facility] Station ID: [id number]
[2025-01-30] MEDS: DROPERIDOL 5 MG/2 ML VIAL IVP STA (15:41)
[2025-01-30] MEDS: KETOROLAC 15 MG/ML VIAL IVP STA ×2 (15:42→17:44)
[2025-01-30 17:09] LABS: B. PARAPERTUSSIS- RESP PCR PAN NOT DETECTED; B. PERTUSSIS- RESP PCR PANEL NOT DETECTED; C. PNEUMONIAE- RESP PCR PANEL NOT DETECTED; CORONAVIRUS 229E-RESP PCR NOT DETECTED; CORONAVIRUS HKU1-RESP PCR NOT DETECTED; CORONAVIRUS NL63-RESP PCR NOT DETECTED; CORONAVIRUS OC43-RESP PCR NOT DETECTED; HUMAN METAPNEUMOVIRUS NOT DETECTED; INFLUENZA A- RESP PCR PANEL NOT DETECTED; INFLUENZA B - RESP PCR PANEL NOT DETECTED; M. PNEUMONIAE- RESP PCR PANEL NOT DETECTED; PARAINFLUENZA VIRUS 1 NOT DETECTED; PARAINFLUENZA VIRUS 2 NOT DETECTED; PARAINFLUENZA VIRUS 4 NOT DETECTED; RHINOVIRUS/ENTEROVIRUS NOT DETECTED; RSV- RESP PCR PANEL NOT DETECTED; SARS-CoV-2 -RESP PCR PANEL NOT DETECTED
--- NOTE | 2025-01-30 18:08 | HISTORY & PHYSICAL EXAMINATION ---
Chief Complaint Chief Complaint Chief Complaint: N/V. dizzy History of Present Illness Admitted From Admitted From:: home History Obtained From Records Reviewed: most recent PCP visit, urology notes History obtained from: patient and spouse at bedside. History of Present Illness HPI Comment/Other: Sudden onset of dizziness just before coming in to the ED. had been standing up doing dishes. has never had this before. he has been vomiting all afternoon in the ED, has gotten multiple doses of medication in the ED: 2 doses of Meclizine, 2 of droperidol and one dose of zofran, all with minimal relief and recurrence of his vomiting. he is actively vomiting as I am coming to see him in the ED. He is also having episodic right sided headaches all afternoon. his describes witnessing nystagmus when his dizziness was at its worst. He is a heavy user of alcohol. When I ask him how much he drinks, he tells me "too much". 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 Lives with his . they have been together for 8 years. Does not have any history of heart disease. has seen an social work professor in the past for subclinical hypothyroidism. Had a colonoscopy in July 2023 for a positive Cologuard, inflammation consistent with ulcerative colitis was seen, path subsequently positive for UC It was recommended that he followup with GI, but he has not. 5 year repeat was recommended. He has a history of HTN, and takes lisinopril nightly. Also recent dx of low grade prostate cancer, has been seen by urology and is having periodic repeat PSA tests. Meds/Allgy Home Medications Ambulatory Orders Medication Instructions Recorded Confirmed lisinopril 10 mg tablet (Zestril) 10 mg PO DAILY PM 01/30/25 Allergies Allergies Allergy/AdvReac Type Severity Reaction Status Date / Time No Known Drug Allergies Allergy Verified 01/30/25 10:43 PFSH Active Problems All Active Problems (Updated 01/30/25 @ 18:46 by COLUMBA Nguyen) Ulcerative colitis (Acute) Intractable nausea and vomiting (Acute) Prostate cancer (Acute) Elevated PSA (Acute) Alcohol abuse (Acute) Essential (primary) hypertension (Acute) Decreased libido (Acute) Hyperthyroidism, subclinical (Acute) Medical History Medical History (Updated 01/30/25 @ 18:46 by COLUMBA Nguyen) Furuncle Trigger finger of right thumb Thyroid nodule Chronic ulcerative colitis Surgical History Surgical History (Updated 01/30/25 @ 12:02 by Garret Whitman RN) Hx of prostate biopsy Family History Family History Father Arthritis Mother Diabetes Social History Social History (Updated 01/30/25 @ 12:02 by Garret Whitman RN) Smoking Status: Former smoker If you are a former smoker, when did you quit? (Date/Year): 2019 Number of Years Smoked: 20 Second hand tobacco smoke exposure: No Do you dip or chew tobacco?: Yes Do you vape?: No Living arrangement: At home Marital Status: Single Living Condition: With family Support Person: Yes Physical Activity: None Level: Independent Do you feel safe in your home environment?: Yes History of physical, verbal, emotional, or financial abuse?: No ETOH Use: Beer Frequency: Daily Number of drinks/day: 6 Substance Use: denies use POLST Patient has POLST: No Review of Systems Status of ROS: 10 or more systems reviewed and unremarkable except as noted in history and below Prior Level of Functionality: independent, lives with , 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 pale HENMT normocephalic and oral mucous membranes normal Eyes conjunctivae normal and no scleral icterus Neck/C-Spine visual inspection normal Lymph no lymphadenopathy noted Chest inspection of chest normal Respiratory breath sounds equal bilaterally, normal respiratory effort and clear to auscultation bilaterally Cardiovascular normal heart rate noted Gastrointestinal abdomen normal to inspection and abdomen soft to palpation Back/Pelvis spine normal to inspection Extremities normal to inspection Neurology acquisitions librarian II-XII intact, no movement abnormality noted, no focal motor deficit noted, no sensory deficits noted, speech normal and GCS 15 Psychiatry mental status grossly normal, oriented x3, thought process normal, cooperative and affect normal Skin skin color normal Conclusion/Plan Problem List (1) Intractable nausea and vomiting: Plan: Multiple doses of IV antiemetics and continues to vomit in the ED. he is not tolerating po. He is sipping clears and vomiting. He has occasional headache all afternoon, and his dizziness is less, but he cannot change position quickly Workup in the ED shows a neg CT head, CTA head and neck shows focal soft plaque at the origin of the right vertebral artery, with 70% narrowing. troponin x2 is neg, and no finding on EKG. I have ordered MRI of the brain and echocardiogram. I will ask PT to see him for his vertigo symptomatology. I am monitoring his heart rhythm on telemetry overnight. This is likely BPPV. He has not had this before. his sister is currently being worked up for Meniere's disease. otherwise, no remarkable related family hx. Meclizine as needed symptoms. Dicussed with Hailey Bethea PA-C in the ED and decision was made to admit to obs for intractable symptoms and further workup as detailed above. (2) Alcohol abuse: Plan: He has been about 24 hours without a drink now. He denies a history of alcohol withdrawal, but never abstains from alcohol. Drinks at least 6 beers a day. I have placed the patient on CIWA protocol and educated him and his about the symptoms of withdrawal. I have ordered symptom triggered Ativan. (3) Prostate cancer: Plan: slow growing, followed by Dr Thomas, passing his urine without issues today (4) Essential (primary) hypertension: Plan: Low dose lisinopril continued. I will not treat blood pressure until >180 SBP. I have continued his home meds. (5) Ulcerative colitis: Plan: biopsy positive. was told to followup w GI and has not done so. Colonos due July 2027. Plan I have spent 78 minutes in the care of this patient today. This includes time [id number], review and ordering of diagnostic imaging and laboratory studies and consultation with other providers. Monitoring the patient's signs symptoms, evaluation of medication effectiveness and patient's response to treatment. Lab Results Lab results reviewed: Yes 01/30/25 11:36 01/30/25 11:36 Core Measures Anticipated LOS I expect patient to be DC'd or transferred within 96 hours.: Yes DVT/VTE - Prophylaxis VTE/DVT Device ordered at admit?: Yes VTE/DVT Prophylaxis med ordered at admit?: Yes
[2025-01-30] MEDS ORDERED: SODIUM CHLORIDE FLUSH 0.9% 10 ML SYRINGE IVP PRN (18:27)
[2025-01-30] MEDS: LACTATED RINGERS 1,000 ML IV SCH (18:41)
[2025-01-30] MEDS: MECLIZINE 12.5 MG TABLET PO PRN (21:51)
[2025-01-30] MEDS: ACETAMINOPHEN 1,000 MG/100 ML 1,000 MG/100 ML BAG IV PRN (22:11)
[2025-01-31] MEDS: ONDANSETRON 4 MG/2 ML VIAL IVP PRN (00:14)
[2025-01-31] MEDS: SODIUM CHLORIDE FLUSH 0.9% 10 ML SYRINGE IVP SCH (00:20)
[2025-01-31] MEDS: oxyCODONE 5 MG TABLET PO PRN (03:01)
[2025-01-31] MEDS: PROCHLORPERAZINE 10 MG/2 ML VIAL IVP PRN (03:58)
[2025-01-31 05:35] LABS: HCT - HEMATOCRIT 37.7 % (42.0-52.0); HGB - HEMOGLOBIN 12.7 g/dL (14.0-18.0); MEAN PLATELET VOLUME 10.2 fL (7.4-11.4); NRBC ABSOLUTE COUNT (AUTO) 0.00 x10^3/uL; NUCLEATED RED BLOOD CELLS AUTO 0.0 /100WBC; PLT - PLATELET COUNT 321 10^3/uL (130-450); RED CELL DISTRIBUTION WIDTH 13.0 % (12.0-15.0)
[2025-01-31 06:44] LABS: BUN - BLOOD UREA NITROGEN 10.0 mg/dL (6-20); CARBON DIOXIDE - CO2 25.0 mmol/L (21-32); CREATININE 0.6 mg/dL (0.6-1.3); GFR - MDRD 141.0 (>89)
[2025-01-31] MEDS: PRENATAL VITAMIN TABLET PO SCH (08:51)
[2025-01-31] MEDS: ASPIRIN EC 81 MG TABLET PO SCH (08:51)
[2025-01-31] MEDS: THIAMINE 100 MG TABLET PO SCH (08:51)
[2025-01-31] MEDS: ENOXAPARIN 40 MG/0.4 ML SYRINGE SUBQ SCH (08:51)
--- NOTE | 2025-01-31 09:12 | PHARMACY PROGRESS NOTE ---
Best Possible Medication History Admit Date and Time: 01/30/25 1755 Home Medications Medication Instructions Recorded Confirmed Type lisinopril 10 mg tablet (Zestril) 10 mg PO DAILY PM 01/31/25 History Processed by: Pharmacy (Medication reconciliation completed by Pharmacy Mele Villareal) Medications reviewed in ED?: No Medication History completed: Yes Patient Interview: Completed Secondary Source(s): Insurance records [facility] Statement: As the person ultimately responsible for medication therapy, providers are able to order a medication from an existing home medication list in [facility] via the "Reconcile Routine" prior to Confirmation of that medication by computer support analyst. Such practice is discouraged except when the physician, in their clinical judgment, deems that a medical need exists for a medication without regard to previous use.
[2025-01-31] MEDS: IBUPROFEN 600 MG TABLET PO PRN (10:02)
[2025-01-31] MEDS: CYCLOBENZAPRINE 10 MG TABLET PO PRN (10:03)
[2025-01-31] MEDS: ACETAMINOPHEN 325 MG TABLET PO PRN (10:03)
[2025-01-31] MEDS: SODIUM CHLORIDE 0.9% IV SCH (12:09)
[2025-01-31] MEDS: THIAMINE IV SCH (12:09)
--- NOTE | 2025-01-31 12:46 | MRI Report ---
PROCEDURE: MRI Brain WO INDICATIONS: vertigo, intractable n/v TECHNIQUE: Multisequence MRI of the brain was performed without intravenous contrast. COMPARISON: CT head and CTA head and neck dated 01/30/2025. FINDINGS: Image quality: Excellent. CSF Spaces: Basal cisterns are patent. No extra-axial fluid collections. Ventricles are normal in size and shape. Brain: No intracranial masses or hemorrhage. Walker/white matter interface is normal. Brainstem appears normal. Diffusion-weighted images demonstrate an acute large right PICA distribution inferior cerebellar infarct. On axial image 28 of diffusion series 9, the area of infarct measures 5.9 x 6.7 cm. There is associated cytotoxic edema and mass effect on the fourth ventricle as well as midline shift. Developing hydrocephalus. No chronic ischemic insults. Normal intravascular flow voids are present. Skull and face: Calvarium has normal marrow signal. Orbits appear normal. Sinuses: Sinuses and mastoids are clear. 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 Above discussed with Dr. Robles at the time of dictation on 01/31/2025 at 1244 hours. Reviewed by: Asher Bobby MD on 01/31/2025 12:44 PM PDT Approved by: Asher Bobby MD on 01/31/2025 12:44 PM PDT Station ID: [id number]
[2025-01-31 12:58] LABS: ABG BASE EXCESS 2.9 mmol/L (-2.0-3.0); ABG HCO3 27.3 mmol/L (22.0-26.0); ABG OXYGEN SATURATION 94 % (95-98); ABG PCO2 40 mmHg (34-45); ABG PH 7.44 (7.35-7.45); ABG PO2 70 mmHg (83-108); ABG TCO2 28.5 mmol/L (21.0-29.0)
[2025-01-31] MEDS: PROPOFOL 1000 MG/100 ML 1,000 MG/100 ML BOTTLE IV SCH (13:40)
[2025-01-31] MEDS ORDERED: CHLORHEXIDINE GLUCONATE 15 ML UDC PO SCH (14:00)
--- NOTE | 2025-01-31 14:08 | Discharge Summary ---
Discharge Summary Admit Date: 01/30/25 Discharge Date: 01/31/25 Discharging Provider: Leah Lima PA-C Primary Care Provider: Tucker Roman MD Code Status: Attempt Resuscitation DIAGNOSES Discharge Diagnoses with Status of Each Condition: Acute respiratory failure Developing hydrocephalus Cerebellar CVA, acute Right vertebral artery stenosis Hypertension Alcoholism Prostate cancer Subclinical hyperthyroidism HPI History of Present Illness: Sudden onset of dizziness just before coming in to the ED. had been standing up doing dishes. has never had this before. he has been vomiting all afternoon in the ED, has gotten multiple doses of medication in the ED: 2 doses of Meclizine, 2 of droperidol and one dose of zofran, all with minimal relief and recurrence of his vomiting. he is actively vomiting as I am coming to see him in the ED. He is also having episodic right sided headaches all afternoon. his describes witnessing nystagmus when his dizziness was at its worst. He is a heavy user of alcohol. When I ask him how much he drinks, he tells me "too much". 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 Lives with his . they have been together for 8 years. Does not have any history of heart disease. has seen an urban planning teacher in the past for subclinical hypothyroidism. Had a colonoscopy in July 2023 for a positive Cologuard, inflammation consistent with ulcerative colitis was seen, path subsequently positive for UC It was recommended that he followup with GI, but he has not. 5 year repeat was recommended. He has a history of HTN, and takes lisinopril nightly. Also recent dx of low grade prostate cancer, has been seen by urology and is having periodic repeat PSA tests. CONSULTS | PROCEDURES Procedures: Chest x-ray: No acute cardiopulmonary process Head CT: 01/30: No imaging explanation is found for the patient's presenting symptoms. No findings of masses or mass effect can be seen. CTA of the head and neck: No significant intracranial arterial abnormalities are seen. Focal soft plaque can be seen at the origin of the right vertebral artery with 70% narrowing, new compared to 2022. No significant carotid abnormality is seen. 2.5 cm left thyroid nodule is seen. When clinically appropriate consider follow-up ultrasound Brain MRI: Very large acute right PICA distribution infarct with mass effect on the fourth ventricle, midline shift and developing hydrocephalus. HOSPITAL COURSE Hospital Course: He was transferred to the floor and placed on CIWA protocol overnight. At the time of admission he had been about 24 hours without a drink. He had no history of alcohol withdrawal. Drinks about 6 beers a day. He received three 1 mg doses of oral Ativan overnight. For CIWA's upwards of 19. Started to complain of some neck stiffness and pain in the morning. Was treated symptomatically with acetaminophen IV and cyclobenzaprine. This morning at about 10:00 he was not oriented and his speech was confused. He was moving all extremities and following commands. He was transferred to the MRI and returned at about 12:30 PM. Upon return from the MRI he was having episodes of hypoxia and when I went to evaluate him he was having sonorous respirations and would open his eyes to vigorous sternal rub. He was using accessory muscles to breathe. Nasopharyngeal airway was placed and at about that time radiology called to inform us of the MRI result indicating the need for urgent neurosurgical intervention. Patient was intubated with 50 of rocuronium and 30 of propofol at about 1:15 PM. He was then placed on a propofol drip. He was not significantly hypotensive with maps close to 100 at that time. I am allowing permissive hypertension. I discussed him with , medical ICU at [facility] and he will be transported via [facility] to [facility] with plans for urgent intervention. His significant other is Nellie Guerra was at the bedside and gave verbal consent for all procedures. His mother is still living, age 86, here on [place] and available via phone, his son is coming to the area this evening to be at the bedside. ALLERGIES Allergies Allergy/AdvReac Type Severity Reaction Status Date / Time No Known Drug Allergies Allergy Verified 01/30/25 10:43 MEDICATIONS Ambulatory Orders Medication Instructions Recorded Confirmed lisinopril 10 mg tablet (Zestril) 10 mg PO DAILY PM 01/31/25 PHYSICAL EXAM AT DISCHARGE Vital Signs: Vital Signs x48h Temp Pulse Pulse Resp BP Pulse Ox 01/31/25 13:15 85 01/31/25 08:07 36.6 C 89 18 138/84 H 94 General Appearance: positive Other (intubated and sedated. ) Eyes Bilateral: positive PERRL and Conjunctivae nml ENT: positive ENT inspection nml Neck: positive Nml inspection Respiratory: positive No respiratory distress and Breath sounds nml Cardiovascular: positive Regular rate & rhythm Abdomen: positive No distention and Other (small umbilical hernia) Back: positive Nml inspection Skin: positive Color nml Extremities: positive No pedal edema Neurologic/Psychiatric: positive Other (progressed from oriented to obtunded GCS E2 V3 M5 just before intubation) LABS 01/31/25 05:05 01/31/25 05:05 TIME SPENT Time Spent in Discharge (Minutes): 90 Discharge Plan Discharge Patient Disposition: 02 Transfer Acute Care Hosp Condition: Critical Prescriptions: No Action lisinopril [Zestril] 10 mg tablet 10 mg PO DAILY PM Rx Instructions: Take 1 tablet daily for hypertension Activity Restrictions/Additional Instructions: Follow up for thyroid US in outpatient setting for findings here in the ED. Print Language: Czech Follow-up Care: Tucker Roman, HIRA, [employer], [employer] [Primary Care Provider, Family Practice] Vitals documented within 30 minutes of discharge?: Yes
--- NOTE | 2025-01-31 14:09 | XRAY Report ---
PROCEDURE: XR Chest for Line Placement INDICATIONS: ET tube placement TECHNIQUE: One view of the chest was acquired. COMPARISON: 01/30/2025. FINDINGS: Surgical changes and devices: The tip of the ET tube is minimally into the right main bronchus and should be retracted. A NG tube is in satisfactory position. Lungs and pleura: No pleural effusions or pneumothorax. No consolidation. Mediastinum: Mediastinal contours appear normal. Heart size is normal. Bones and chest wall: No suspicious bony lesions. Overlying soft tissues appear unremarkable. IMPRESSION: Recommend retraction and repositioning of ET tube. Above discussed with Dr. Robles at the time of dictation on 01/31/2025 at 1407 hours. Reviewed by: Asher Bobby MD on 01/31/2025 2:07 PM PDT Approved by: Asher Bobby MD on 01/31/2025 2:07 PM PDT Station ID: [id number]
[2025-01-31 14:12] VITALS: O2SAT 100
[2025-01-31] MEDS ORDERED: ROCURONIUM 50 MG/5 ML VIAL ONE (14:16)
[2025-01-31] MEDS ORDERED: PROPOFOL 200 MG/20 ML VIAL IVP ONE (14:16)
[2025-01-31 14:38] LABS: ABG OXYGEN SATURATION 100 % (95-98); ABG PCO2 34 mmHg (34-45); ABG PH 7.50 (7.35-7.45); ABG PO2 183 mmHg (83-108); ABG TCO2 27.4 mmol/L (21.0-29.0)
[2025-01-31 14:39] LABS: ABG BASE EXCESS 2.9 mmol/L (-2.0-3.0); ABG FRACTION OF INSPIRED O2 60.00; ABG HCO3 26.3 mmol/L (22.0-26.0); ABG MODE OF VENTILATION ASSIST/CONTROL
[2025-01-31] MEDS ORDERED: SODIUM CHLORIDE 0.9% 1,000 ML ONE (14:46)
[2025-01-31 15:12] VITALS: BP 168/98; TEMP 98.1
[2025-02-01] MEDS ORDERED: PANTOPRAZOLE 40 MG VIAL IVP SCH (07:00)
== END 2025-01-31 15:10 | disposition short-term general hospital (02) ==
LOC: ED 10:25 → MS2 10:25 → ICU 01-31 13:19
PROVIDERS: ADMIT Physician Assistant Medical; ATTEND Physician Assistant Medical
DX: R00.0 Tachycardia, unspecified; Z87.891 Personal history of nicotine dependence; R51.9 Headache, unspecified; I63.9 Cerebral infarction, unspecified; G91.9 Hydrocephalus, unspecified; R11.2 Nausea with vomiting, unspecified; E03.8 Other specified hypothyroidism; C61 Malignant neoplasm of prostate; R42 Dizziness and giddiness; J96.01 Acute respiratory failure with hypoxia; F10.20 Alcohol dependence, uncomplicated; I10 Essential (primary) hypertension; K51.90 Ulcerative colitis, unspecified, without complications; I65.01 Occlusion and stenosis of right vertebral artery